=== PATIENT | female | born 1970 | race African-American/Black ===

== ENCOUNTER 2017-05-08 19:48 | Emergency (ER) | payer MEDICAID ==
[~2017-05-08] VITALS: Ht 157.5 cm; Wt 86.0 kg
[~2017-05-08 19:48] MED LIST: AMLO10TA80 PO; LISI10TA5 PO
[2017-05-08] MEDS ORDERED: MORPHINE SULFATE 4 MG/ML CPJ (NOT FOR IM USE) IV STA (22:30)
[2017-05-08] MEDS ORDERED: SODIUM CHLORIDE 0.9% 1,000 ML IV ONE (22:30)
[2017-05-08] MEDS ORDERED: ONDANSETRON HCL 4MG/2ML VIAL IV STA (22:30)
[2017-05-08 23:41] LABS: CLARITY URINE CLOUDY (CLEAR); COLOR URINE ORANGE (YELLOW); KETONES URINE NEGATIVE (NEGATIVE); LEUKOCYTE ESTERASE URINE 1+ (NEGATIVE); NITRITE URINE NEGATIVE (NEGATIVE); OCCULT BLOOD URINE 3+ (NEGATIVE); PROTEIN URINE NEGATIVE (NEGATIVE); SPECIFIC GRAVITY URINE 1.015 (1.005-1.030); UROBILINOGEN URINE 0.2 E.U./dL (0.2-1.0)
[2017-05-08 23:53] LABS: BASOPHILS % 0.9 % (0.0-2.0); EOSINOPHILS % 1.5 % (0.0-5.0); HEMATOCRIT. 37.3 % (36.0-48.0); HEMOGLOBIN. 12.4 g/dL (12.0-16.0); LYMPHOCYTES % 31.9 % (20.0-50.0); MEAN CORPUSCULAR HEMOGLOBIN 26.9 pg (28.0-32.0); MEAN CORPUSCULAR VOLUME 80.6 fL (81.0-99.0); MEAN PLATELET VOLUME 8.3 fl (7.4-10.4); MONOCYTES % 9.2 % (2.0-8.0); NEUTROPHILS % 56.5 % (40.0-76.0); PLATELET 289 x1000/uL (130-400); RED BLOOD CELL COUNT 4.62 mill/uL (4.2-5.4); RED CELL DISTRIBUTION WIDTH 17.1 % (11.6-14.6)
[2017-05-09 00:08] LABS: CARBON DIOXIDE 27 mEq/L (21-32); CHLORIDE 106 mEq/L (98-107)
[2017-05-09 00:13] LABS: TROPONIN I < 0.02 ng/mL (0.00-0.04)
[2017-05-09] MEDS ORDERED: IOHEXOL-300 100 ML BOTTLE ONE (02:44)
[2017-05-09] MEDS ORDERED: HYDROCODONE/ACETAMINOPHEN 10/325MG TABLET PO ONE (03:45)
[2017-05-09 04:00] VITALS: BP 127/91
== END 2017-05-09 04:05 | disposition home or self-care (01) ==
LOC: ER 20:29
DX: K57.92 Diverticulitis of intestine, part unspecified, without perforation or abscess without bleeding (principal); J45.909 Unspecified asthma, uncomplicated; I10 Essential (primary) hypertension; Z90.49 Acquired absence of other specified parts of digestive tract
CPT/HCPCS: 36415; 74177; 80053; 81001; 81025; 83605; 83690; 84484; 85025; 93005; 96361; 96374; 96375; 99285; J2270; J2405; J7030; Q9967; Z7610

== ENCOUNTER 2017-11-14 17:25 | Inpatient (IN) | payer MEDICAID ==
[~2017-11-14] VITALS: Ht 170.2 cm; Wt 100.7 kg
[~2017-11-14 17:25] MED LIST changes: +ALBU4TAB6 PO; +HYDR-4009 PO; +HYDR12.54 PO; +S350 PO
[2017-11-14] MEDS ORDERED: ONDANSETRON HCL 4MG/2ML VIAL IV STA (18:39)
[2017-11-14] MEDS ORDERED: MORPHINE SULFATE 4 MG/ML CPJ (NOT FOR IM USE) IV STA (18:39)
[2017-11-14 19:47] LABS: LYMPHOCYTES % 35.8 % (20.0-50.0); MEAN CORPUSCULAR HEMOGLOBIN 24.9 pg (28.0-32.0); MEAN CORPUSCULAR VOLUME 76.8 fL (81.0-99.0); MEAN PLATELET VOLUME 7.9 fl (7.4-10.4); MONOCYTES % 9.1 % (2.0-8.0); NEUTROPHILS % 52.1 % (40.0-76.0); PLATELET 339 x1000/uL (130-400); RED BLOOD CELL COUNT 4.81 mill/uL (4.2-5.4); RED CELL DISTRIBUTION WIDTH 17.3 % (11.6-14.6)
[2017-11-14 19:56] LABS: CHLORIDE 106 mEq/L (98-107); PROTHROMBIN TIME 10.6 sec (9.4-11.6)
[2017-11-14] MEDS ORDERED: SODIUM CHLORIDE 0.9% 1,000 ML IV SCH (23:11)
[2017-11-15 00:45] VITALS: BP 120/90
[2017-11-15] MEDS ORDERED: LEVOFLOXACIN 500MG PREMIX 100 ML IV SCH ×2 (01:45→05:00)
[2017-11-15] MEDS ORDERED: METRONIDAZOLE 500 MG PREMIX 100 ML IV SCH ×3 (01:45→14:00)
[2017-11-15] MEDS ORDERED: IPRATROPIUM/ALBUTEROL 0.5-3(2.5)MG/3ML NEB HHN PRN (01:45)
[2017-11-15] MEDS ORDERED: ONDANSETRON HCL 4MG/2ML VIAL IV PRN (01:45)
[2017-11-15] MEDS ORDERED: CLONIDINE 0.1MG TABLET PO PRN (01:45)
[2017-11-15] MEDS: MORPHINE SULFATE 4 MG/ML CPJ (NOT FOR IM USE) IV PRN ×6 (01:58→22:12)
[2017-11-15] MEDS: SODIUM CHLORIDE 0.9% 1,000 ML IV SCH ×2 (02:05→15:25)
[2017-11-15 04:00] VITALS: BP 125/61
[2017-11-15 07:10] LABS: EOSINOPHILS % 1.3 % (0.0-5.0); HEMATOCRIT. 35.9 % (36.0-48.0); HEMOGLOBIN. 11.7 g/dL (12.0-16.0); LYMPHOCYTES % 26.2 % (20.0-50.0); MEAN CORPUSCULAR VOLUME 76.9 fL (81.0-99.0); MEAN PLATELET VOLUME 8.2 fl (7.4-10.4); MONOCYTES % 8.2 % (2.0-8.0); NEUTROPHILS % 63.3 % (40.0-76.0); PLATELET 339 x1000/uL (130-400); RED BLOOD CELL COUNT 4.66 mill/uL (4.2-5.4); RED CELL DISTRIBUTION WIDTH 17.4 % (11.6-14.6)
[2017-11-15 08:00] VITALS: BP 134/64
[2017-11-15] MEDS: PANTOPRAZOLE SODIUM 40 MG/VIAL IV SCH (08:20)
[2017-11-15 09:03] LABS: CHLORIDE 105 mEq/L (98-107)
[2017-11-15 12:00] VITALS: BP 158/78
[2017-11-15] MEDS: HYDROCHLOROTHIAZIDE 12.5MG CAPSULE PO SCH (12:10)
[2017-11-15] MEDS: AMLODIPINE 10MG TABLET PO SCH (12:10)
[2017-11-15] MEDS: LISINOPRIL 10MG TABLET PO SCH (12:10)
[2017-11-15 16:00] VITALS: BP 146/84
[2017-11-15] MEDS ORDERED: DEXTROSE 50% WATER 50ML SYRINGE IV PRN (16:00)
[2017-11-15] MEDS: BLOOD SUGAR DIAGNOSTIC STRIP TEST SCH ×2 (17:10→20:48)
[2017-11-15] MEDS: INSULIN LISPRO 100 UNITS/ML SUBCUT SCH ×2 (17:40→20:48)
[2017-11-15 20:00] VITALS: BP 197/125
[2017-11-15] MEDS ORDERED: DIPHENHYDRAMINE 25MG CAPSULE PO PRN (22:00)
[2017-11-15] MEDS ORDERED: POTASSIUM CHLORIDE 20MEQ TABLET SR PO NR (22:00)
[2017-11-16] VITALS: BP 150/83
[2017-11-16] MEDS: MORPHINE SULFATE 4 MG/ML CPJ (NOT FOR IM USE) IV PRN ×4 (02:21→16:40)
[2017-11-16 04:00] VITALS: BP 125/67
[2017-11-16] MEDS: SODIUM CHLORIDE 0.9% 1,000 ML IV SCH ×2 (05:36→16:40)
[2017-11-16] MEDS: INSULIN LISPRO 100 UNITS/ML SUBCUT SCH ×2 (07:40→12:40)
[2017-11-16] MEDS: PANTOPRAZOLE SODIUM 40 MG/VIAL IV SCH (08:01)
[2017-11-16] MEDS: LISINOPRIL 10MG TABLET PO SCH (08:02)
[2017-11-16] MEDS: AMLODIPINE 10MG TABLET PO SCH (08:02)
[2017-11-16] MEDS: HYDROCHLOROTHIAZIDE 12.5MG CAPSULE PO SCH (08:02)
[2017-11-16] MEDS: BLOOD SUGAR DIAGNOSTIC STRIP TEST SCH ×2 (08:08→12:42)
[2017-11-16 08:32] VITALS: BP 157/92
[2017-11-16 12:42] VITALS: BP 146/79
[2017-11-16 16:50] VITALS: BP 156/84
[2017-11-16] MEDS ORDERED: HYDROCODONE/ACETAMINOPHEN 5/325MG TABLET PO PRN (17:00)
[2017-11-16 17:46] VITALS: BP 156/84
[2017-11-17] MEDS ORDERED: FAMOTIDINE 20MG TABLET PO SCH (09:00)
== END 2017-11-16 17:57 | disposition home or self-care (01) | DRG 244 ==
LOC: ER 17:25 → 8WST 23:12 → EDBEDREQ 23:14 → ENRESERV 23:44 → 8WST 11-15 02:30
PROVIDERS: ADMIT Internal Medicine; ATTEND Internal Medicine
DX: K57.32 Diverticulitis of large intestine without perforation or abscess without bleeding (principal); E44.1 Mild protein-calorie malnutrition; I10 Essential (primary) hypertension; E11.9 Type 2 diabetes mellitus without complications; J45.909 Unspecified asthma, uncomplicated; Z90.49 Acquired absence of other specified parts of digestive tract; Z88.0 Allergy status to penicillin; Z79.899 Other long term (current) drug therapy; Z68.34 Body mass index [BMI] 34.0-34.9, adult
CPT/HCPCS: 36415; 71045; 74176; 80048; 80053; 81025; 82962; 83690; 84484; 85025; 85610; 93005; 96361; 96374; 96375; 99285; C1893; C9113; J1956; J2270; J2405; J3490; J7030; Q0163

== ENCOUNTER 2018-04-05 11:19 | Inpatient (IN) | payer MEDICAID ==
[~2018-04-05] VITALS: Ht 157.5 cm; Wt 95.7 kg
[2018-04-05] MEDS ORDERED: ONDANSETRON HCL 4MG/2ML INJ IV STA (11:35)
[2018-04-05] MEDS ORDERED: MORPHINE SULFATE 4 MG/ML CPJ (NOT FOR IM USE) IV STA (11:35)
[2018-04-05] MEDS ORDERED: MORPHINE SULFATE 10 MG/ML CPJ IV NR ×2 (12:00→15:00)
[2018-04-05 12:14] LABS: BASOPHILS % 1.3 % (0.0-2.0); EOSINOPHILS % 2.3 % (0.0-5.0); HEMATOCRIT. 42.4 % (36.0-48.0); HEMOGLOBIN. 14.2 g/dL (12.0-16.0); LYMPHOCYTES % 36.3 % (20.0-50.0); MEAN CORPUSCULAR HEMOGLOBIN 27.3 pg (28.0-32.0); MEAN CORPUSCULAR VOLUME 81.4 fL (81.0-99.0); MEAN PLATELET VOLUME 8.3 fl (7.4-10.4); MONOCYTES % 12.1 % (2.0-8.0); PLATELET 290 x1000/uL (130-400); RED BLOOD CELL COUNT 5.21 mill/uL (4.2-5.4)
[2018-04-05 12:20] LABS: CHLORIDE 108 mEq/L (98-107)
[2018-04-05 12:24] LABS: PROTHROMBIN TIME 10.2 sec (9.1-11.1)
[2018-04-05 12:27] LABS: HCG SCREEN NEGATIVE
[2018-04-05 13:04] LABS: CLARITY URINE CLEAR (CLEAR); COLOR URINE YELLOW (YELLOW); KETONES URINE NEGATIVE (NEGATIVE); LEUKOCYTE ESTERASE URINE NEGATIVE (NEGATIVE); NITRITE URINE NEGATIVE (NEGATIVE); OCCULT BLOOD URINE 2+ (NEGATIVE); PH URINE 6.5 (4.5-8.0); PROTEIN URINE NEGATIVE (NEGATIVE); SPECIFIC GRAVITY URINE 1.016 (1.005-1.030)
[2018-04-05] MEDS ORDERED: MORPHINE SULFATE 4 MG/ML CPJ (NOT FOR IM USE) IV ONE (14:30)
[2018-04-05] MEDS ORDERED: METRONIDAZOLE 500 MG PREMIX 100 ML IV ONE (14:30)
[2018-04-05] MEDS ORDERED: LEVOFLOXACIN 750MG PREMIX 150 ML IV ONE (14:30)
[2018-04-05] MEDS ORDERED: HYDRALAZINE 20MG/ML VIAL IV ONE (16:30)
[2018-04-05] MEDS ORDERED: HYDROMORPHONE HCL/PF 1MG/ML CPJ IV PRN (18:15)
[2018-04-05] MEDS: ONDANSETRON HCL 4MG/2ML INJ IV PRN (18:27)
[2018-04-05 20:37] VITALS: BP 150/111
[2018-04-05 20:50] VITALS: BP 150/111
[2018-04-05] MEDS: DEXT 5%/0.45% NACL KCL 20MEQ/L 1,000 ML IV SCH (23:37)
[2018-04-05] MEDS: METRONIDAZOLE 500 MG PREMIX 100 ML IV SCH (23:37)
[2018-04-05] MEDS: LISINOPRIL 10MG TABLET PO SCH (23:38)
[2018-04-06] VITALS: BP 172/102
[2018-04-06] MEDS: HYDROMORPHONE HCL/PF 2MG/ML CPJ IV PRN ×6 (00:09→20:20)
[2018-04-06] MEDS: ONDANSETRON HCL 4MG/2ML INJ IV PRN ×2 (01:33→05:57)
[2018-04-06 04:00] VITALS: BP 160/100
[2018-04-06] MEDS: METRONIDAZOLE 500 MG PREMIX 100 ML IV SCH ×3 (06:01→22:42)
[2018-04-06 08:00] VITALS: BP_SYST 160; BP_DIAS 111; BP_DIAS 89
[2018-04-06] MEDS: LISINOPRIL 10MG TABLET PO SCH ×2 (08:14→20:21)
[2018-04-06] MEDS: DEXT 5%/0.45% NACL KCL 20MEQ/L 1,000 ML IV SCH ×3 (08:15→23:38)
[2018-04-06] MEDS ORDERED: CLONIDINE 0.1MG TABLET PO PRN (09:30)
[2018-04-06] MEDS: AMLODIPINE 5MG TABLET PO SCH ×2 (09:57→20:21)
[2018-04-06] MEDS ORDERED: INFLUENZA VIRUS VACCINE(AFLURIA) 0.5ML SYR IM ONE (10:00)
[2018-04-06 12:00] VITALS: BP 138/86
[2018-04-06] MEDS ORDERED: LEVOFLOXACIN 500MG PREMIX 100 ML IV SCH (15:00)
[2018-04-06 16:00] VITALS: BP 136/86
[2018-04-06 20:00] VITALS: BP 116/99
[2018-04-06] MEDS: SULFAMETHOXAZOLE/TRIMETHOPRIM 800/160MG TABLET PO SCH (20:20)
[2018-04-07] MEDS ORDERED: DIPHENHYDRAMINE 50MG/ML VIAL IV PRN (01:00)
[2018-04-07] MEDS: HYDROMORPHONE HCL/PF 2MG/ML CPJ IV PRN ×3 (04:12→21:02)
[2018-04-07] MEDS: METRONIDAZOLE 500 MG PREMIX 100 ML IV SCH ×3 (05:43→22:00)
[2018-04-07 07:26] LABS: BASOPHILS % 1.2 % (0.0-2.0); EOSINOPHILS % 2.7 % (0.0-5.0); HEMATOCRIT. 42.5 % (36.0-48.0); HEMOGLOBIN. 14.3 g/dL (12.0-16.0); LYMPHOCYTES % 32.5 % (20.0-50.0); MEAN CORPUSCULAR HEMOGLOBIN 27.6 pg (28.0-32.0); MEAN CORPUSCULAR VOLUME 82.2 fL (81.0-99.0); MEAN PLATELET VOLUME 8.4 fl (7.4-10.4); MONOCYTES % 8.9 % (2.0-8.0); NEUTROPHILS % 54.7 % (40.0-76.0); PLATELET 278 x1000/uL (130-400); RED BLOOD CELL COUNT 5.17 mill/uL (4.2-5.4); RED CELL DISTRIBUTION WIDTH 17.9 % (11.6-14.6)
[2018-04-07 08:00] VITALS: BP 109/70
[2018-04-07 08:16] LABS: CHLORIDE 107 mEq/L (98-107)
[2018-04-07] MEDS: LISINOPRIL 10MG TABLET PO SCH ×2 (08:29→21:00)
[2018-04-07] MEDS: AMLODIPINE 5MG TABLET PO SCH ×2 (08:29→20:59)
[2018-04-07] MEDS: SULFAMETHOXAZOLE/TRIMETHOPRIM 800/160MG TABLET PO SCH ×2 (08:46→21:00)
[2018-04-07] MEDS: PANTOPRAZOLE SODIUM 40 MG/VIAL IV SCH (08:46)
[2018-04-07] MEDS: DEXT 5%/0.45% NACL KCL 20MEQ/L 1,000 ML IV SCH ×3 (08:46→23:30)
[2018-04-07 12:00] VITALS: BP 130/77
[2018-04-07 16:00] VITALS: BP 134/68
[2018-04-07 20:00] VITALS: BP 172/89
[2018-04-08] VITALS: BP 177/97
[2018-04-08 04:00] VITALS: BP 145/76
[2018-04-08] MEDS: HYDROMORPHONE HCL/PF 2MG/ML CPJ IV PRN ×4 (04:04→21:24)
[2018-04-08] MEDS: METRONIDAZOLE 500 MG PREMIX 100 ML IV SCH ×3 (06:00→23:48)
[2018-04-08] MEDS: DEXT 5%/0.45% NACL KCL 20MEQ/L 1,000 ML IV SCH ×3 (07:30→23:48)
[2018-04-08 08:00] VITALS: BP 149/79
[2018-04-08] MEDS: SULFAMETHOXAZOLE/TRIMETHOPRIM 800/160MG TABLET PO SCH ×2 (08:48→21:33)
[2018-04-08] MEDS: LISINOPRIL 10MG TABLET PO SCH ×2 (08:48→21:23)
[2018-04-08] MEDS: PANTOPRAZOLE SODIUM 40 MG/VIAL IV SCH (08:49)
[2018-04-08] MEDS: AMLODIPINE 5MG TABLET PO SCH ×2 (08:49→21:23)
[2018-04-08 12:00] VITALS: BP 152/69
[2018-04-08] MEDS ORDERED: IPRATROPIUM/ALBUTEROL 0.5-3(2.5)MG/3ML NEB HHN PRN (13:00)
[2018-04-08 16:00] VITALS: BP 142/68
[2018-04-08 20:00] VITALS: BP 151/93
[2018-04-09] VITALS: BP 144/80
[2018-04-09] MEDS: HYDROMORPHONE HCL/PF 2MG/ML CPJ IV PRN ×2 (01:30→06:03)
[2018-04-09 04:00] VITALS: BP 157/89
[2018-04-09] MEDS: DEXT 5%/0.45% NACL KCL 20MEQ/L 1,000 ML IV SCH (06:04)
[2018-04-09] MEDS: METRONIDAZOLE 500 MG PREMIX 100 ML IV SCH (06:04)
[2018-04-09 08:00] VITALS: BP_SYST 117; BP_SYST 135; BP_DIAS 66; BP_DIAS 82
[2018-04-09] MEDS: SULFAMETHOXAZOLE/TRIMETHOPRIM 800/160MG TABLET PO SCH (09:48)
[2018-04-09] MEDS: AMLODIPINE 5MG TABLET PO SCH (09:50)
[2018-04-09] MEDS: LISINOPRIL 10MG TABLET PO SCH (09:51)
[2018-04-09 09:55] VITALS: BP 135/82
== END 2018-04-09 11:40 | disposition home or self-care (01) | DRG 244 ==
LOC: ER 11:19 → 8WST 14:55 → EDBEDREQ 14:58 → CANRESERV 15:41 → ENRESERV 15:41 → EDBEDREQTM 16:21 → EDBEDREQSVC 16:21 → ENRESERV 19:14 → 6EST 04-06 05:23
PROVIDERS: ADMIT Internal Medicine; ATTEND Internal Medicine
DX: K57.32 Diverticulitis of large intestine without perforation or abscess without bleeding (principal); K76.0 Fatty (change of) liver, not elsewhere classified; E44.1 Mild protein-calorie malnutrition; E87.8 Other disorders of electrolyte and fluid balance, not elsewhere classified; I10 Essential (primary) hypertension; I16.0 Hypertensive urgency; J45.909 Unspecified asthma, uncomplicated; E66.9 Obesity, unspecified; Z76.5 Malingerer [conscious simulation]; Z88.0 Allergy status to penicillin; Z90.49 Acquired absence of other specified parts of digestive tract; Z88.8 Allergy status to other drugs, medicaments and biological substances; Z68.38 Body mass index [BMI] 38.0-38.9, adult
CPT/HCPCS: 36415; 71045; 72100; 74176; 80048; 84484; 84703; 90686; 93005; 96365; 96375; 99285; C9113; J0360; J1170; J1200; J1956; J2270; J2405; J3490; J7050